=== PATIENT | male | born 1975 | race Caucasian/White ===

== ENCOUNTER 2022-08-20 16:00 | Outpatient (RCR) | payer OTHER, SELFPAY | END 2022-09-28 13:51 | disposition home or self-care (01) | LOC: PT 16:00 | PROVIDERS: PCP Internal Medicine; Visit Provider Internal Medicine | DX: S46.911D Strain of unspecified muscle, fascia and tendon at shoulder and upper arm level, right arm, subsequent encounter (principal) | CPT/HCPCS: 97014; 97032; 97110; 97140; 97161; G0283 ==

== ENCOUNTER 2022-10-25 14:07 | Outpatient (OUT) | payer OTHER, SELFPAY ==
--- NOTE | 2022-10-25 14:36 | CA_ITS ---
Patient: VICTOR HUGO MCCABE Exam Date: 10/25/2022 : 1975 Gender:M Ordering : PRERNA ROD Admission #: [id number] Family : Order #: [id number] CLICK HERE TO VIEW EXAM ECHOCARDIOGRAM REPORT PROCEDURE: CA ECHO DOPPLER COMPLETE INDICATIONS: Palpitations, h/o ablasion (atrial fibrillation - resolved) COMPARISON: None. DESCRIPTION: COMPLETE ECHOCARDIOGRAM Real-time transthoracic echocardiography with 2D, M-mode, spectral and color flow Doppler performed. QUALITY: Technical quality was good. LEFT VENTRICLE: Normal chamber size. Normal left ventricular wall thickness. Systolic function is at the lower limits of normal. LV EF: Lower limits of normal left ventricular ejection fraction, (50-55%). DIASTOLIC: Normal diastolic function. ATRIAL SEPTUM: LEFT ATRIUM: Normal chamber size. RIGHT ATRIUM: Normal chamber size. RIGHT VENTRICLE: Normal chamber size. Normal right ventricular systolic function. TRICUSPID VALVE: Normal mobility and thickness. No stenosis with trivial regurgitation. Doppler studies reveal mildly (35-45) elevated right sided pressures. RVSP 38 mmHg MITRAL VALVE: Normal mobility and thickness. No evidence of mitral valve stenosis. There is no mitral annular calcification. Trivial mitral regurgitation. AORTIC VALVE: Normal trileaflet appearance. No visible sclerosis. Normal leaflet mobility. No evidence of aortic valve stenosis. No aortic regurgitation. AORTIC ROOT: Normal diameter and appearance. PULMONIC VALVE: Normal thickness and mobility. No stenosis. Mild regurgitation. PERICARDIUM: No evidence of pericardial effusion. IVC: Collapses with inspirations. PLEURA: CONCLUSION: 1. Left-ventricular systolic function is at the lower limits of normal. LVEF is 50 to 55%. 2. Normal right ventricular size and systolic function. 3. No significant valvular dysfunction. 4. Normal diastolic function. 5. Mildly elevated right-sided pressures. Adult Echocardiography Procedure Report Left Ventricle LVEDD (3.7 - 5.6 cm): 5.26 cm LVESD (2.2 - 4.0 cm): 3.46 cm LVIVS thickness (0.6 - 1.2 cm): 1.14 cm LVPW thickness (0.5 - 1.0 cm): 0.90 cm e': 0.18 m/s E - e': 4.75 LVOT Max Gradient: 4.43 mm[Hg] LVOT Area (cm2): 1.05 m/s Peak Velocity (LVOT): 1.05 m/s Mean Velocity (LVOT): 0.72 m/s LVOT Diameter 2.35 cm Left Atrium LA Volume Index (2D A2C): 26.31 ml/m2 Left Atrium Systolic Dimension: 4.13 cm Mitral Valve MV E to A Ratio: 1 Mitral Valve A-Wave Peak Velocity: 0.86 m/s Mitral Valve E-Wave Peak Velocity: 0.86 m/s Right Ventricle Aorta AO Root Diam: 3.45 cm Ascending Ao Diam: 3.25 cm Aortic Valve AoV Area (Peak Michael): 3.79 cm2, 3.79 cm2 AoV Area (VTI): 3.33 cm2, 3.33 cm2 Peak Velocity(Antegrade Flow): 1.20 m/s Peak Gradient(Antegrade Flow): 5.79 mm[Hg] Mean Velocity(Antegrade Flow): 0.88 m/s Mean Gradient(Antegrade Flow): 3.48 mm[Hg] Velocity Time Integral: 26.75 cm Tricuspid Valve Peak Velocity (Regurgitant Flow): 2.95 m/s Pulmonic Valve Peak Velocity: 1.07 m/s Peak Gradient: 4.48 mm[Hg], 4.63 mm[Hg] Right Atrium Right Atrium Systolic Pressure: 33.06 ml, 33.06 ml Dictated by: Gary Goyal M.D. on 10/25/2022 at 17:22 Approved by: Gary Goyal M.D. on 10/25/2022 at 17:27
== END 2022-10-25 14:08 | disposition home or self-care (01) ==
LOC: CARD 14:07
PROVIDERS: PCP Internal Medicine; Visit Provider Nurse Practitioner
DX: R00.2 Palpitations (principal)
CPT/HCPCS: 93306

== ENCOUNTER 2022-12-20 14:28 | Outpatient (OUT) | payer OTHER, SELFPAY ==
[2022-12-20 15:14] LABS: Basophils Absolute Auto 0.1 10^3/uL (0.0-0.1); Basophils Percent Auto 0.6 % (0.2-2.0); Eosinophils Absolute Auto 0.1 10^3/uL (0.0-0.7); Eosinophils Percent Auto 1.6 % (0.9-7.0); Hematocrit 46.2 % (42.0-54.0); Immature Granulocytes Abs Auto 0.05 10^3/uL (0.00-0.03); Immature Granulocytes Pct Auto 0.6 % (0.0-0.5); Lymphocytes Absolute Auto 1.8 10^3/uL (1.2-3.8); Lymphocytes Percent Auto 23.4 % (20.5-60.0); Mean Corpuscular HGB Conc 34.6 g/dL (29.9-35.2); Mean Corpuscular Volume 95.3 fL (80.0-94.0); Mean Platelet Volume 10.6 fL (9.5-13.5); Monocytes Absolute Auto 0.7 10^3/uL (0.3-0.8); Monocytes Percent Auto 9.3 % (1.7-12.0); Neutrophils Absolute Auto 5.1 10^3/uL (1.4-6.5); Neutrophils Percent Auto 64.5 % (43.0-75.0); Platelet Count 186 10^3/uL (150-450); Red Blood Count 4.85 10^6/uL (4.70-6.10); Red Cell Distribution Width 12.1 % (11.0-15.0); White Blood Count 7.9 10^3/uL (4.0-11.0)
[2022-12-20 15:29] LABS: INR 0.97; Partial Thromboplastin Time 29.7 sec (22.3-36.2); Prothrombin Time 10.3 sec (9.0-11.6)
[2022-12-20 15:36] LABS: Anion Gap 11.6; BUN Creatinine Ratio 19.3; Calcium 9.1 mg/dL (8.5-10.1); Carbon Dioxide 29.6 mmol/L (21.0-32.0); Chloride 100 mmol/L (98-107); Estimated GFR (African America >60 (>=60); Estimated GFR (Non-African Ame >60 (>=60); Glucose 90 mg/dL (74-106); Potassium 4.2 mmol/L (3.5-5.1); Sodium 137 mmol/L (136-145)
[2022-12-20 15:55] LABS: Prostate Specific Antigen Scrn 0.73 ng/mL (<=4.00)
== END 2022-12-20 14:29 | disposition home or self-care (01) ==
LOC: PST 14:32
PROVIDERS: PCP Internal Medicine; Visit Provider Urology
DX: Z01.812 Encounter for preprocedural laboratory examination (principal); I48.91 Unspecified atrial fibrillation; G47.33 Obstructive sleep apnea (adult) (pediatric); J30.2 Other seasonal allergic rhinitis; M19.90 Unspecified osteoarthritis, unspecified site; Z80.42 Family history of malignant neoplasm of prostate; Z12.5 Encounter for screening for malignant neoplasm of prostate
CPT/HCPCS: 80048; 85025; 85610; 85730; G0103

== ENCOUNTER 2022-12-27 06:59 | Day surgery (SDC) | payer OTHER, SELFPAY ==
[2022-12-20 15:09] VITALS: BP 129/79; PULSE 74; RESP 14; TEMP 36.3; O2SAT 96; BMI 29.6
[2022-12-27] VITALS (9 sets, daily range): BP systolic 103–128; BP diastolic 68–87; PULSE 70–81; RESP 14–16; TEMP 36.2–36.9; O2SAT 91–98; BMI 29.4
[2022-12-27] MEDS: LACTATED RINGER'S SOLUTION 1,000 ML 50 ML IV (07:29)
[2022-12-27] MEDS: CEFAZOLIN SODIUM/DEXTROSE,ISO 1 GM/50 ML IV.SOLN IV (08:00)
--- NOTE | 2022-12-27 08:45 | PM.URSON ---
Urology Surgery Operative Note Operative Note Procedure Date: 12/27/22 Time Out Performed: yes Pre-op Diagnosis: fertile male Post-op Diagnosis: same as pre-op Procedures performed: #1. Bilateral segmental vasectomy Anesthesia: General-LMA Primary Surgeon: Gabriele Hare Complications: non- Estimated blood loss (mL): 2 Findings: normal vasa Specimens: bilateral vasa segments Indications for Procedures: gentleman is 47 years old. He has children. He is desirous for sterilization. He has signed an informed consent after all risks were explained to him in great detail. He has chosen to undergo general anesthesia for this procedure. Detailed description of Procedure: the ppatient was brought to the operating room and placed on the operating room table in the supine position. SCDs were placed on his lower extremities and turned on and functioning during the entire case. Timeout was done by all parties in the room. We all agreed upon the patient's identification and the planned procedures for this patient. Gen. anesthesia was then administered via LMA. His genitalia were then sterilely prepped and draped in the usual fashion. I started by palpating the left vas and bringing it up to the anterior scrotal surface. With a 15 blade scalpel a small incision was made in the skin over the vas. A hemostat was used to bluntly dissect to the vasa itself. The ringed grasping forceps was then used to grasp the vas and a loop of vas was bluntly dissected out. Each end of the loop was clamped with a hemostat. The loop was then transected with the knife and sent for permanent sections. The remaining ends of the vasa were then coagulated with the Bovie. Each end was then tied with a 2-0 Vicryl tie. The proximal end was then everted upon itself with 4-0 Vicryl. Needle-tipped Bovie cautery was used to gain and verified perfect hemostasis. The Ends Were Then Allowed to Fall Back in the Hemiscrotum. 4-0 Vicryl Was Then Used in an Interrupted Fashion to Close the Skin. The Exact Same Maneuver Was Then Done on the Contralateral Side. At the End of the Procedure Sterile Fluffs Were Applied and a Scrotal Support Was Then Placed. He Was Then Transferred to a [place] burnie Bed and Wheeled to PACU in Stable Condition.
== END 2022-12-27 09:47 | disposition home or self-care (01) ==
PROVIDERS: PCP Internal Medicine; Visit Provider Urology
PROC: (CPT 55250; principal; 2022-12-27 08:00)
DX: Z30.2 Encounter for sterilization (principal); I10 Essential (primary) hypertension; M47.816 Spondylosis without myelopathy or radiculopathy, lumbar region; G47.33 Obstructive sleep apnea (adult) (pediatric); I48.0 Paroxysmal atrial fibrillation; Z79.899 Other long term (current) drug therapy; Z80.42 Family history of malignant neoplasm of prostate
CPT/HCPCS: 55250; 36415; 88302; J2704

== ENCOUNTER 2024-12-08 12:55 | Outpatient (RCR) | payer BC, SELFPAY | END 2025-01-19 15:04 | disposition home or self-care (01) | LOC: PT 12:55 | PROVIDERS: PCP Internal Medicine; Visit Provider Podiatrist Foot & Ankle Surgery | DX: M54.16 Radiculopathy, lumbar region (principal); M79.672 Pain in left foot; M72.2 Plantar fascial fibromatosis | CPT/HCPCS: 20561; 97035; 97110; 97140; 97161 ==